=== PATIENT | female | born 2000 | race Caucasian/White ===

== ENCOUNTER 2021-09-21 20:12 | Emergency (ER) | payer MEDICAID ==
[~2021-09-21] VITALS: Ht 167.6 cm; Wt 61.2 kg
[2021-09-21 20:30] VITALS: BP 130/86
[2021-09-21 21:40] LABS: APPEARANCE,URINE CLEAR (CLEAR); BILIRUBIN,URINE NEGATIVE (NEGATIVE); BLOOD, URINE 1+ (NEGATIVE); COLOR,URINE YELLOW (YELLOW); LEUKOCYTE ESTERASE ,URINE NEGATIVE (NEGATIVE); NITRITE, URINE NEGATIVE (NEGATIVE); PH,URINE 6.5 (5.0-9.0); UGLUCOSE NEGATIVE (NEGATIVE)
--- NOTE | 2021-09-21 21:41 | NUR ---
Blood for labwork drawn from left arm per crew manager. Patient tolerated well.
[2021-09-21 21:48] LABS: BASOPHILS % (AUTO) 0.3 % (0.0-2.0); EOSINOPHILS # (AUTO) 0.3 K/uL (0-0.4); EOSINOPHILS % (AUTO) 3.5 % (0.0-4.0); HEMATOCRIT 42.7 % (36-48); HEMOGLOBIN 14.3 g/dL (12.0-16.0); LYMPHOCYTES # (AUTO) 2.3 K/uL (2.5-16.5); LYMPHOCYTES % (AUTO) 23.5 % (20.5-51.1); MEAN CORPUSCULAR HEMOGLOBIN 30 pg (27-31); MEAN CORPUSCULAR HGB CONC 34 g/dL (33-37); MEAN CORPUSCULAR VOLUME 89.2 fL (80-94); MONOCYTES # (AUTO) 0.7 K/uL (0.8-1.0); MONOCYTES % (AUTO) 7.2 % (1.7-9.3); NEUTROPHILS # (AUTO) 6.3 K/uL (1.8-7.7); NEUTROPHILS % (AUTO) 65.5 % (42.2-75.2); PLATELET COUNT (AUTO) 292 K/uL (140-450); RED BLOOD CELL COUNT(AUTO) 4.78 MIL/uL (4.20-5.40); RED CELL DISTRIBUTION WIDTH 14.1 % (11.6-13.7); WHITE BLOOD COUNT (AUTO) 9.7 K/uL (4.5-11.0)
[2021-09-21 21:50] LABS: OTHER CASTS, URINE None Seen /LPF (None Seen); RBC,URINE 0-5 /HPF (0-5); WBC,URINE 0-5 /HPF (0-5)
[2021-09-21 22:11] LABS: ALBUMIN 4.4 g/dL (3.4-5.0); ANION GAP 13.5 (8-16); CARBON DIOXIDE 30.4 mmol/L (21-32); CREATININE 0.8 mg/dL (0.6-1.3); POTASSIUM 3.9 mmol/L (3.5-5.1); TOTAL BILIRUBIN 0.2 mg/dL (0.0-1.0)
[2021-09-21] MEDS ORDERED: KETOROLAC 15 MG/ML VIAL IVP ONE (23:15)
--- NOTE | 2021-09-21 23:31 | NUR ---
20 Y/O FEMALE BIBS FROM HOME, C/O lower abdominal pain x today. Patient reported, had lower abdominal pain for 3 days, no fever. Patient seen by MD , Rx Antibiotics for UTI. A/OX4, GCS-15; UNLABORED BREATHING, SPEAKING IN FULL SENTENCES; AMBULATORY W/O ASSISTANCE; SKIN PINK/DRY/WARM; DENIES COUGH, FEVER, SOB, OR CP. PT SEATED IN BED, HOB RAISED, AND RAILS UP X1. PMHx: DENIES
--- NOTE | 2021-09-22 00:16 | NUR ---
PT TAKEN TO CT VIA WHEELCHAIR
[2021-09-22] MEDS ORDERED: KETOROLAC 15 MG/ML VIAL ONE (00:17)
--- NOTE | 2021-09-22 00:17 | NUR ---
PT RETURNED FROM CT VIA wc
--- NOTE | 2021-09-22 02:49 | NUR ---
ERMD AT BEDSIDE DISCUSSING PT RESULTS
[2021-09-22] MEDS ORDERED: IBUP-2213 PO (02:58)
[2021-09-22] MEDS ORDERED: SULF-59 PO (02:58)
[2021-09-22 03:09] VITALS: BP 122/82
--- NOTE | 2021-09-22 03:10 | NUR ---
Patient discharged with v/s stable. Written and verbal after care instructions given and explained. Patient alert, oriented and verbalized understanding of instructions. Ambulatory with steady gait. All questions addressed prior to discharge. ID band removed. Patient advised to follow up with PMD. Rx of IBUPPROFEN AND BACTRIM given. Patient educated on indication of medication including possible reaction and side effects. Opportunity to ask questions provided and answered. VSS, A/OX4, UNLABORED BREATHING, AMBULATORY, AND CALM DEMEANOR.
== END 2021-09-22 03:08 | disposition home or self-care (01) ==
LOC: MED 20:12
DX: R10.31 Right lower quadrant pain (principal); Z79.899 Other long term (current) drug therapy
CPT/HCPCS: 36415; 74177; 80053; 81001; 81025; 83690; 85025; 96374; 99285; J1885; Q9967